=== PATIENT | male | born 1965 | race African-American/Black ===

== ENCOUNTER 2018-07-12 17:31 | Emergency (ER) | payer BC ==
[~2018-07-12] VITALS: Ht 188 cm; Wt 127.5 kg
[2018-07-12 18:06] LABS: ABSOLUTE NEUTROPHILS 2.9 thou/uL (1.4-8.2); BASOPHILS 0.5 % (0.0-2.0); EOSINOPHILS 3.4 % (0.0-3.0); HEMATOCRIT 41.7 % (42.0-52.0); HEMOGLOBIN 14.1 gm/dL (14.0-18.0); LYMPHOCYTES 30.7 % (24.0-44.0); MCH 28.2 pg (26.0-34.0); MCHC 33.9 g/dL (28.0-37.0); MCV 83.3 fL (80.0-100.0); MONOCYTES 8.1 % (1.0-8.0); PLATELET COUNT 266 thou/uL (150-400); POLYS 57.3 % (36.0-66.0); RBC 5.01 mil/uL (4.50-6.00); RDW 14.5 % (10.5-14.5); WBC 5.1 thou/uL (4.0-11.0)
[2018-07-12 18:09] LABS: ANION GAP 9 mmol/L (7-16); BUN 12 mg/dL (7-18); CALCIUM 9.3 mg/dL (8.5-10.1); CHLORIDE 102 mmol/L (98-107); CO2 27 mmol/L (21-32); CREATININE 1.3 mg/dL (0.7-1.3); GLUCOSE 105 mg/dL (74-106); SODIUM 138 mmol/L (136-145)
[2018-07-12 18:19] LABS: PROTIME 10.7 Seconds (9.3-11.4)
[2018-07-12 18:20] LABS: ALBUMIN 4.3 g/dL (3.4-5.0); SGOT 39 U/L (15-37); SGPT 62 U/L (30-65); TOTAL BILIRUBIN 0.5 mg/dL (<0.1-1.0); TOTAL PROTEIN 8.2 g/dL (6.4-8.2); TROPONIN-I <0.06 ng/mL (<0.06)
[2018-07-12 18:40] VITALS: BP 157/89
--- NOTE | 2018-07-12 19:09 | EKG ---
[address] [address] [place] [address] ELECTROCARDIOGRAM REPORT Name: BECCA LEMUS Room #: [id number] ������������������ Admission: 07/12/18 ������������������ Attend Phys: Discharge: ������������������ Date of : 67 Report #: [id number] ����������������������������������������������������������������� [id number] THIS REPORT FOR: //name// [facility] ED Test Date: 2018-07-12 Test Time: 17:41:43 Pat Name: BECCA LEMUS Department: Room: Gender: Can Solderer: : 1965 Requested By: Sergio Garces Order Number: [id number] MD: Javier Bunch Measurements Intervals [place] Rate: 67 P: 29 [place]: 166 QRS: 31 QRSD: 79 T: 11 QT: 347 QTc: 367 Interpretive Statements Sinus rhythm Early transition left atrial enlargement Nonspecific ST-T wave changes No previous ECG available for comparison Electronically Signed On 07-12-2018 19:09:37 CDT by Javier Bunch [email or web address] ��������������������������������������������� <ELECTRONICALLY SIGNED> ���������������������������������������� By: Javier Bunch MD ��������������������������������������������� 07/12/18 1909 1741 1741 Javier Bunch MD /KEANU
== END 2018-07-12 19:30 | disposition home or self-care (01) ==
LOC: ER 17:31
PROVIDERS: Emergency Medicine
DX: R07.89 Other chest pain (principal); R42 Dizziness and giddiness